=== PATIENT | male | born 1970 | race Two or more races ===

== ENCOUNTER 2017-06-26 17:35 | Emergency (ER) | payer BC ==
[2017-06-26] MEDS ORDERED: Albuterol/Ipratropium 3.0-0.5 MG/3 ML Neb Soln NEB ONE (18:02)
[2017-06-26] MEDS ORDERED: methylPREDNISolone Sodium Succinate 125 MG/2 ML SDV IVPUSH ONE (18:02)
[2017-06-26] MEDS: methylPREDNISolone Sodium Succinate 125 MG/2 ML SDV IM ONE ×2 (18:22→18:27)
--- NOTE | 2017-06-26 18:27 | EDM.PDOC ---
ED HPI GENERAL MEDICAL PROBLEM - General Chief Complaint: Respiratory Problem Stated Complaint: SOB Time Seen by Provider: 06/26/17 17:45 Source of Information: Reports: Patient History Limitations: Reports: No Limitations - History of Present Illness INITIAL COMMENTS - FREE TEXT/NARRATIVE: History of present illness: [47-year-old male comes in complaining of shortness of breath. Patient indicates he has known asthma and he has recently right ear without any of his asthma medicine.] Review of systems: As per history of present illness and below otherwise all systems reviewed and negative. Past medical history: As per history of present illness and as reviewed below otherwise noncontributory. Surgical history: As per history of present illness and as reviewed below otherwise noncontributory. Social history: No reported history of drug or alcohol abuse. Family history: As per history of present illness and as reviewed below otherwise noncontributory. Physical exam: HEENT: Atraumatic, normocephalic, pupils reactive, negative for conjunctival pallor or scleral icterus, mucous membranes moist, throat clear, neck supple, nontender, trachea midline. Lungs: Lung sounds are clear but diminished throughout, breath sounds equal bilaterally, chest nontender. Heart: S1S2, regular, negative for clicks, rubs, or JVD. Abdomen: Soft, nondistended, nontender. Negative for masses or hepatosplenomegaly. Negative for costovertebral tenderness. Pelvis: Stable nontender. Genitourinary: Deferred. Rectal: Deferred. Extremities: Atraumatic, negative for cords or calf pain. Neurovascular unremarkable. Neuro: Awake, alert, oriented. Cranial nerves II through XII unremarkable. Cerebellum unremarkable. Motor and sensory unremarkable throughout. Exam nonfocal. Patient indicates he feels like he can breathe better after DuoNeb patient refused Solu-Medrol. Diagnostics: [] Therapeutics: [Duo neb, Solu-Medrol] Impression: [Asthma exacerbation] Plan: [Routine meds] Definitive disposition and diagnosis as appropriate pending reevaluation and review of above. - Related Data Allergies Allergy/AdvReac Type Severity Reaction Status Date / Time Penicillins Allergy Cannot Verified 06/26/17 18:10 Remember Home Meds: Home Meds Albuterol Sulfate 2.5 mg IH Q6HR #25 ampule 06/26/17 [Rx] Albuterol [Ventolin HFA] 8 gm INH Q6H #1 inhaler 06/26/17 [Rx] Budesonide/Formoterol Fumarate [Symbicort 160-4.5 Mcg Inhaler] 1 puff IH DAILY # 1 canister 06/26/17 [Rx] Montelukast [Singulair] 10 mg PO BEDTIME #30 tablet 06/26/17 [Rx] Past Medical History Respiratory History: Reports: Asthma Social & Family History - Family History Family Medical History: Noncontributory - Tobacco Use Smoking Status *Q: Never Smoker - Recreational Drug Use Recreational Drug Use: No ED ROS GENERAL - Review of Systems Review Of Systems: See Below (See history of present illness) ED EXAM, GENERAL - Physical Exam Exam: See Below (See history of present illness) Course - Vital Signs Last Recorded V/S: Last Vital Signs Temp 35.8 C 06/26/17 17:40 Pulse 68 06/26/17 17:40 Resp 18 06/26/17 17:40 BP 129/77 06/26/17 17:40 Pulse Ox 97 06/26/17 17:40 - Orders/Labs/Meds Orders: Active Orders 24 hr Category Date Time Status RT Aerosol Therapy [RC] ASDIRECTED Care 06/26/17 18:02 Active Meds: Medications Discontinued Medications Generic Name Dose Route Start Last Admin Trade Name Tenisha PRN Reason Stop Dose Admin Albuterol/Ipratropium 3 ml 06/26/17 18:02 06/26/17 18:20 Duoneb 3.0-0.5 Mg/3 Ml NEB 06/26/17 18:03 3 ml ONETIME ONE Administration Methylprednisolone Sodium Succinate 125 mg 06/26/17 18:02 06/26/17 18:22 Solu-Medrol IVPUSH 06/26/17 18:03 Not Given ONETIME ONE Methylprednisolone Sodium Succinate 125 mg 06/26/17 18:13 06/26/17 18:27 Solu-Medrol IM 06/26/17 18:14 Not Given ONETIME ONE Departure - Departure Time of Disposition: 19:00 Disposition: Home, Self-Care 01 Condition: Good Clinical Impression: Exacerbation of asthma - Discharge Information Prescriptions: Albuterol Sulfate 2.5 mg IH Q6HR #25 ampule Albuterol [Ventolin HFA] 8 gm INH Q6H #1 inhaler Budesonide/Formoterol Fumarate [Symbicort 160-4.5 Mcg Inhaler] 1 puff IH DAILY # 1 canister Montelukast [Singulair] 10 mg PO BEDTIME #30 tablet Instructions: Asthma, Adult, Shortness of Breath, [id number] Forms: ED Department Discharge Additional Instructions: The following information is given to patients seen in the emergency department who are being discharged to home. This information is to outline your options for follow-up care. We provide all patients seen in our emergency department with a follow-up referral. The need for follow-up, as well as the timing and circumstances, are variable depending upon the specifics of your emergency department visit. If you don't have a primary care physician on staff, we will provide you with a referral. We always advise you to contact your personal physician following an emergency department visit to inform them of the circumstance of the visit and for follow-up with them and/or the need for any referrals to a consulting specialist. The emergency department will also refer you to a specialist when appropriate. This referral assures that you have the opportunity for follow-up care with a specialist. All of these measure are taken in an effort to provide you with optimal care, which includes your follow-up. Under all circumstances we always encourage you to contact your private physician who remains a resource for coordinating your care. When calling for follow-up care, please make the office aware that this follow-up is from your recent emergency room visit. If for any reason you are refused follow-up, please contact the [facility] Emergency Department at and asked to speak to the emergency department charge nurse. 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
== END 2017-06-26 19:18 | disposition home or self-care (01) ==
LOC: MW.ED 17:35
DX: J45.901 Unspecified asthma with (acute) exacerbation (principal); Z79.899 Other long term (current) drug therapy; Z88.0 Allergy status to penicillin
CPT/HCPCS: 94640; 99283; 99284-25; J2930